=== PATIENT | male | born 1960 | race Hispanic/Latino ===

== ENCOUNTER 2020-04-16 06:54 | Inpatient (IN) | payer SELFPAY ==
[2020-04-16] VITALS (19 sets, daily range): BP systolic 118–150; BP diastolic 64–81
[~2020-04-16] VITALS: Ht 165.1 cm; Wt 69.9 kg
[2020-04-16] MEDS ORDERED: HYOSCYAMINE SULFATE 0.125 MG TAB.SUBL SL ONE (07:43)
[2020-04-16] MEDS ORDERED: ONDANSETRON HCL 4 MG/2 ML VIAL ONE ×2 (07:43→12:08)
[2020-04-16] MEDS ORDERED: FAMOTIDINE/PF 20 MG/2 ML VIAL IV ONE (07:43)
[2020-04-16 07:59] LABS: BASOPHILS % (AUTO) 0.3 % (0.0-5.0); EOSINOPHILS % (AUTO) 1.7 % (0.0-8.0); HEMATOCRIT 43.8 % (42-54); LYMPHOCYTES % (AUTO) 38.4 % (21.0-51.0); MEAN CORPUSCULAR HEMOGLOBIN 28.5 pg (27.0-33.0); MEAN CORPUSCULAR HGB CONC 33.6 g/dL (32.0-36.0); MONOCYTES % (AUTO) 8.8 % (3.0-13.0); NEUTROPHILS % (AUTO) 50.5 % (40.0-77.0); PLATELET COUNT (AUTO) 271 K/uL (130-400); RED BLOOD CELL COUNT(AUTO) 5.15 MIL/uL (4.50-6.20); RED CELL DISTRIBUTION WIDTH 14.5 % (11.0-15.5); WHITE BLOOD COUNT (AUTO) 6.6 K/uL (4.8-10.8)
[2020-04-16 08:18] LABS: ALBUMIN 3.8 g/dL (3.5-5.0); BILIRUBIN,TOTAL 1.1 mg/dL (0.2-1.0); CREATININE 0.9 mg/dL (0.5-1.5); POTASSIUM 3.4 mmol/L (3.5-5.1); TOTAL PROTEIN, SERUM 7.8 g/dL (6.0-8.3)
[2020-04-16 11:38] LABS: APPEARANCE,URINE Clear (CLEAR); BILIRUBIN,URINE Negative (NEGATIVE); COLOR,URINE Yellow (YELLOW); GLUCOSE, URINE (UA) Negative (NEGATIVE); KETONES,URINE Negative (NEGATIVE); LEUKOCYTE ESTERASE ,URINE Negative (NEGATIVE); NITRATE,URINE Negative (NEGATIVE); OCCULT BLOOD,URINE Negative (NEGATIVE); PH,URINE 7.5 (5.0-8.0); PROTEIN,URINE Negative (NEGATIVE); UROBILINOGEN,URINE 0.2 mg/dL (0.2-1.0)
--- NOTE | 2020-04-16 12:00 | NUR ---
preop pt brought to holding. pt in no distress at this time but reported when he moves his lower abd hurts. pt here for left inguinal hernia repair. pt npo since yesterday. chikis vu informed of potassium and no covid swab.
[2020-04-16] MEDS ORDERED: DEXAMETHASONE SOD PHOSPHATE 10MG/ML 1ML VIAL ONE (12:07)
[2020-04-16] MEDS ORDERED: GLYCOPYRROLATE 1 MG/5 ML SYRINGE ONE ×2 (12:07→13:42)
[2020-04-16] MEDS ORDERED: MIDAZOLAM HCL 1 MG/ML 2ML VIAL ONE (12:07)
[2020-04-16] MEDS ORDERED: LIDOCAINE PF 2% 5ML ABBOJECT ONE (12:07)
[2020-04-16] MEDS ORDERED: NEOSTIGMINE 5MG/5ML SYR IV ONE ×2 (12:07→13:42)
[2020-04-16] MEDS ORDERED: PROPOFOL 10 MG/ML 20ML VIAL IV ONE (12:07)
[2020-04-16] MEDS ORDERED: SUCCINYLCHOLINE 200MG/10ML SYR ONE ×2 (12:07→12:13)
[2020-04-16] MEDS ORDERED: ROCURONIUM 10MG/1ML SYR 10 MG/ML ML ONE (12:08)
[2020-04-16] MEDS ORDERED: FENTANYL CITRATE PF 50 MCG/1 ML 2ML VIAL ONE ×2 (12:08→14:12)
[2020-04-16] MEDS ORDERED: EPHEDRINE SULFATE 50 MG/ML AMPULE ONE (13:37)
[2020-04-16] MEDS ORDERED: CEFAZOLIN SODIUM 1 GM VIAL ONE (13:43)
[2020-04-16] MEDS ORDERED: BUPIVACAINE/PF 0.5% 10ML VIAL ONE (13:55)
[2020-04-16] MEDS ORDERED: KETOROLAC TROMETHAMINE 30MG/ML ONE (14:30)
[2020-04-16] MEDS ORDERED: MEPERIDINE-PF 25 MG/ML SYG ONE (15:14)
[2020-04-16] MEDS ORDERED: ONDANSETRON HCL 4 MG/2 ML VIAL IVP PRN (17:30)
[2020-04-16] MEDS ORDERED: MORPHINE SULFATE 4 MG/1ML SYG IVP PRN (17:30)
[2020-04-16] MEDS ORDERED: ACETAMINOPHEN-CODEINE 300/30MG TAB PO PRN (17:30)
[2020-04-16] MEDS: LACTATED RINGERS 1000ML 1,000 ML IV SCH (20:23)
[2020-04-16] MEDS: CEFAZOLIN SODIUM 1 GM VIAL IVP SCH (22:00)
[2020-04-17 03:41] LABS: BASOPHILS % (AUTO) 0.1 % (0.0-5.0); HEMATOCRIT 38.4 % (42-54); LYMPHOCYTES % (AUTO) 6.4 % (21.0-51.0); MEAN CORPUSCULAR HEMOGLOBIN 28.2 pg (27.0-33.0); MEAN CORPUSCULAR HGB CONC 33.1 g/dL (32.0-36.0); MEAN CORPUSCULAR VOLUME 85.3 fL (79-99); MONOCYTES % (AUTO) 6.4 % (3.0-13.0); NEUTROPHILS % (AUTO) 86.7 % (40.0-77.0); PLATELET COUNT (AUTO) 240 K/uL (130-400); RED CELL DISTRIBUTION WIDTH 14.8 % (11.0-15.5); WHITE BLOOD COUNT (AUTO) 12.2 K/uL (4.8-10.8)
[2020-04-17 04:00] VITALS: BP 123/65
--- NOTE | 2020-04-17 05:00 | NUR ---
ROUNDS PATIENT RESTING IN BED AT THIS TIME WITH OU CLOSED. EASILY AROUSED. NO COMPLAINTS OF PAIN VOICED AT THIS TIME. VITALS STABLE. AFEBRILE. TOLERATING IVF WELL. LR INFUSING AT 75ML/HR. NO ADVERSE REACTIONS NOTED FROM ANCEF. DRESSING TO MID LOWER ABD DRY AND INTACT. NO DRAINAGE OR ACTIVE BLEEDING NOTED. RESP EVEN AND UNLABORED. NO SOB NOTED. PULLING 300ML ON INCENTIVE SPIROMETER. VOIDING WITHOUT DIFFICULTY. NO SIGNS OF DISTRESS NOTED. CALL LIGHT WITHIN REACH. WILL CONTINUE TO BE OBSERVED. Addendum: 04/17/20 at 0648 by BJ RUIZ RN RN Amended: Links added.
[2020-04-17] MEDS: CEFAZOLIN SODIUM 1 GM VIAL IVP SCH (05:54)
[2020-04-17] MEDS: LACTATED RINGERS 1000ML 1,000 ML IV SCH ×2 (06:50→21:53)
[2020-04-17 08:04] VITALS: BP 112/60
[2020-04-17] MEDS ORDERED: SIMETHICONE 80 MG TAB.CHEW PO PRN (10:45)
[2020-04-17] MEDS: DOCUSATE SODIUM 100 MG CAP PO SCH ×2 (10:45→21:53)
[2020-04-17] MEDS ORDERED: DOCUSATE SODIUM 100 MG CAP PO ONE (10:54)
[2020-04-17 11:24] VITALS: BP 115/63
[2020-04-17 16:20] VITALS: BP 121/56
[2020-04-17 19:58] VITALS: BP 114/63
[2020-04-17 23:36] VITALS: BP 124/66
[2020-04-18 04:00] VITALS: BP 109/52
[2020-04-18 06:56] LABS: BASOPHILS % (AUTO) 0.2 % (0.0-5.0); EOSINOPHILS % (AUTO) 0.5 % (0.0-8.0); HEMATOCRIT 34.9 % (42-54); LYMPHOCYTES % (AUTO) 26.4 % (21.0-51.0); MEAN CORPUSCULAR HEMOGLOBIN 28.3 pg (27.0-33.0); MEAN CORPUSCULAR HGB CONC 32.7 g/dL (32.0-36.0); MEAN CORPUSCULAR VOLUME 86.6 fL (79-99); MONOCYTES % (AUTO) 11.2 % (3.0-13.0); NEUTROPHILS % (AUTO) 61.3 % (40.0-77.0); PLATELET COUNT (AUTO) 212 K/uL (130-400); RED BLOOD CELL COUNT(AUTO) 4.03 MIL/uL (4.50-6.20); RED CELL DISTRIBUTION WIDTH 15.1 % (11.0-15.5); WHITE BLOOD COUNT (AUTO) 8.4 K/uL (4.8-10.8)
[2020-04-18 08:10] VITALS: BP 110/65
[2020-04-18] MEDS: DOCUSATE SODIUM 100 MG CAP PO SCH ×2 (10:01→20:53)
[2020-04-18 11:15] VITALS: BP 129/64
[2020-04-18] MEDS: LACTATED RINGERS 1000ML 1,000 ML IV SCH (12:23)
[2020-04-18 15:41] VITALS: BP 142/73
[2020-04-18 20:00] VITALS: BP 99/57
--- NOTE | 2020-04-18 21:58 | NUR ---
NOTE PATIENT REPORTS HAVING A BM. SAW A MEDIUM BROWN SOFT BM IN TOILET. INQUIRED WETHER HE WAS READY TO GO AND IF SHE HAD A RIDE TO TAKE HIM HOME AVAILABLE. HE SAYS HE WILL MAKE SOME CALLS AND LET ME KNOW.
--- NOTE | 2020-04-18 22:18 | NUR ---
NOTE PATIENT SAYS HE DOES NOT HAVE ANYONE TO TRANSPORT HIM TONIGHT UNTIL TOMORROW. SAYS HE ALSO IS WANTING TO STAY THE NIGHT, THE NURSE IN PREVIOUS SHIFT TOLD HIM HE COULD DO FOR PAIN MEDS UNTIL HE IS ABLE TO GET THEM TOMORROW IN THE PHARMACY.
[2020-04-18 23:44] VITALS: BP 132/65
[2020-04-19 03:39] VITALS: BP 128/59
[2020-04-19 08:00] VITALS: BP 120/66
--- NOTE | 2020-04-19 08:00 | NUR ---
AM SHIFT ASSESSMENT.DISCHARGE ORDERS IN PLACE SINCE LAST EVENING.
[2020-04-19] MEDS: DOCUSATE SODIUM 100 MG CAP PO SCH (09:38)
[2020-04-19 11:00] VITALS: BP 143/55
--- NOTE | 2020-04-19 13:00 | NUR ---
DISCHARGED NOW USING TEACH BACK. SALINE LOCK REMOVED, DRESSING TO SURGICAL WOUND CHANGED, INST. N WOUND CARE. RX FOR TYLENOL #3 GIVEN FOLLOW UP APPT. WITH DR. ORIN VARGAS. VERBALIZES UNDERSTANDING OF ALL INST. GIVEN
== END 2020-04-19 14:00 | disposition home or self-care (01) | DRG 352 ==
LOC: EDH 06:54 → EDHIP 06:55 → 3AH 15:58 → 3BH 04-18 18:42
PROVIDERS: ADMIT Surgery; ATTEND Surgery
PROC: 0YU60JZ Supplement Left Inguinal Region with Synthetic Substitute, Open Approach (ICD-10-PCS; principal; 2020-04-16 13:24)
DX: K40.30 Unilateral inguinal hernia, with obstruction, without gangrene, not specified as recurrent (principal)
CPT/HCPCS: 36415; 80053; 81003; 82550; 83690; 84484; 85025; 93005; G0378; J0330; J0690; J1100; J1885; J2001; J2175; J2250; J2270; J2405; J2704; J2710; J3010; J3490; J7030; J7120

== ENCOUNTER → 2020-05-29 | Outpatient (CLI) | payer SELFPAY | END | disposition home or self-care (01) | LOC: RAH 08:23 | PROVIDERS: ATTEND Surgery | DX: K40.90 Unilateral inguinal hernia, without obstruction or gangrene, not specified as recurrent (principal); K43.2 Incisional hernia without obstruction or gangrene; Z98.890 Other specified postprocedural states | CPT/HCPCS: 72192 ==